=== PATIENT | female | born 1940 | race Caucasian/White ===

== ENCOUNTER 2016-10-07 06:40 | Day surgery (SDC) | payer MEDICARE, OTHER ==
[2016-10-07] MEDS ORDERED: Sodium Chloride 0.9% 10 ML Syringe FLUSH PRN (07:00)
[2016-10-07] MEDS ORDERED: Lactated Ringers 1,000 ML IV SCH (07:00)
[2016-10-07] MEDS ORDERED: Propofol 200 MG/20 ML SDV ONE (07:55)
[2016-10-07] MEDS ORDERED: fentaNYL 100 MCG/2 ML SDV ONE (07:55)
[2016-10-07 10:34] VITALS: BP 159/73
--- NOTE | 2016-10-07 11:42 | OR ---
PREOPERATIVE DIAGNOSIS: Positive family history of colon cancer-brother. POSTOPERATIVE DIAGNOSIS: Normal colonoscopic exam. PROCEDURE PROPOSED: Total flexible colonoscopy. PROCEDURE DONE: Total flexible colonoscopy. INDICATION: This is a 76-year-old female who comes in for recommended colonoscopy. She does have a family history of brother with colon cancer. Her last examination was approximately 11 years ago. She denies any symptomatology other than some chronic diarrhea that she has had since her gallbladder removal. TECHNIQUE: The patient was brought to the endoscopy suite, placed in left lateral decubitus position. She was sedated with propofol per [employer]. The flexible video colonoscope was then passed transanally and under visualization was advanced to the cecum. Examination revealed a normal ascending, transverse, descending, sigmoid, and rectal colon. There was no evidence of any diverticulosis, polyps, colitis, or any other abnormalities. The scope was then withdrawn. The patient tolerated the procedure well. IMPRESSION: 1. Essentially normal colonoscopic exam. 2. Family history of colon cancer-brother. PLAN: At her age of 76, I feel that she actually needs no future examinations. SCM: 10/07/2016 08:33:18 MODL: 10/07/2016 11:34:25 /[id number]
== END 2016-10-07 09:30 ==
LOC: VM.SDS 06:40
PROVIDERS: ATTEND Surgery
DX: Z80.0 Family history of malignant neoplasm of digestive organs (principal); Z12.11 Encounter for screening for malignant neoplasm of colon; I10 Essential (primary) hypertension; E11.9 Type 2 diabetes mellitus without complications; E78.00 Pure hypercholesterolemia, unspecified; K21.9 Gastro-esophageal reflux disease without esophagitis; E66.9 Obesity, unspecified; Z68.30 Body mass index [BMI] 30.0-30.9, adult; Z79.82 Long term (current) use of aspirin; Z79.899 Other long term (current) drug therapy; Z79.84 Long term (current) use of oral hypoglycemic drugs; Z88.1 Allergy status to other antibiotic agents; Z88.8 Allergy status to other drugs, medicaments and biological substances; Z90.49 Acquired absence of other specified parts of digestive tract; Z98.51 Tubal ligation status; Z98.890 Other specified postprocedural states
CPT/HCPCS: 82962; G0105; J2704; J3010; J7120; 00810

== ENCOUNTER 2016-11-11 21:31 | Emergency (ER) | payer MEDICARE, OTHER ==
[2016-11-11] MEDS ORDERED: Acetaminophen/HYDROcodone 325-10 MG Tab PO ONE (22:13)
[2016-11-11 23:44] VITALS: BP 144/64
--- NOTE | 2016-11-12 09:42 | ER ---
Date of Service: 11/11/2016 SUBJECTIVE: Margie presents to emergency room with complaints of problems with vaginal discomfort. The patient states that she is concerned that her Pinto catheter is not draining. The patient underwent a partial hysterectomy this morning and was discharged from the hospital, same day surgery, at [place] in afternoon. She noticed that she was experiencing drainage problems from the catheter as there had not been any urine output in approximately 2 hours. She states that the staff at the hospital advised the family that they were to pull the Pinto catheter in the morning and also pull the large vaginal packing from her vagina at that time. The patient is experiencing some vaginal irritation since, but states that she has not taken her pain medication for approximately 7 hours. PAST MEDICAL HISTORY: 1. Hypertension. 2. Labyrinthitis. 3. GERD. 4. Cholecystectomy. 5. Obesity. 6. Type 2 diabetes mellitus. MEDICATIONS: 1. Metformin. 2. Spironolactone/hydrochlorothiazide. 3. Zantac. 4. [place]-3 fatty acid. 5. Imodium. 6. Cinnamon. 7. Apple cider vinegar. 8. Cholestyramine. 9. Vitamin D3. 10.Atenolol. 11.Aspirin. 12.Digestive enzymes. ALLERGIES: Doxycycline, sulfamethoxazole, tetanus and trimethoprim. REVIEW OF SYSTEMS: Denies any fever, chills, nausea, vomiting, chest pain or shortness of breath. Please see history of present illness. PHYSICAL EXAMINATION: General: This is a 76-year-old female patient, who is in no acute distress. Vital Signs: Blood pressure is 144/64, heart rate is 58, respiratory rate 16, O2 saturations 94%. Skin: Warm, pink, and dry. HEENT. Head is normocephalic, atraumatic. Mouth, oral mucosa is moist. Lungs: Clear to auscultation. Heart: Regular rate and rhythm. Abdomen: Soft, nontender to palpation. There is no mass noted. There is no hepatosplenomegaly noted. Genitourinary: Pinto catheter is in place. There is yellowish urine present in the catheter tubing. It does appear that she has adequate urine output on examination of the catheter. The bladder scan was performed and she was found to have less than 50 mL of urine in her bladder. She did have a large packing placed in her vagina with a knot at the end. They appeared to be causing some discomfort to her perianal area. Remainder of her physical examination was unremarkable. ASSESSMENT: Postoperative pain and catheter complication. PLAN: The patient will be discharged. She was given [place] 10/325 here for her discomfort and was informed that she should take this every 4-6 hours as needed for pain. The Pinto catheter was kept in place. It is possible that it was kinked due to the way that the patient was sitting. I did advise the patient and family that they could return to the ER to have the packing and the catheter removed tomorrow in the morning. Also, return if she develops any fever, chills or other worrisome signs or symptoms. All questions were answered. ROBEK: 11/12/2016 06:47:12 MODL: 11/12/2016 08:48:28 /[id number]
== END 2016-11-11 22:38 | disposition home or self-care (01) ==
LOC: VM.ED 21:31
DX: T83.098A Other mechanical complication of other urinary catheter, initial encounter (principal); I10 Essential (primary) hypertension; K21.9 Gastro-esophageal reflux disease without esophagitis; E66.9 Obesity, unspecified; E11.9 Type 2 diabetes mellitus without complications; Z79.84 Long term (current) use of oral hypoglycemic drugs; Z79.899 Other long term (current) drug therapy; Z90.49 Acquired absence of other specified parts of digestive tract; Z79.82 Long term (current) use of aspirin; Z90.710 Acquired absence of both cervix and uterus; Z88.2 Allergy status to sulfonamides; Z88.1 Allergy status to other antibiotic agents
CPT/HCPCS: 51798; 99283; A9270

== ENCOUNTER 2020-03-12 15:04 | Emergency (ER) | payer MEDICARE, BC ==
--- NOTE | 2020-03-12 15:57 | CT ---
[id number] CT/CT Head WO IV EXAM: CT Head WO IV CLINICAL DATA: TRAUMA COMPARISON: NO PREVIOUS SIMILAR EXAM IS AVAILABLE FOR COMPARISON. FINDINGS: Soft tissue swelling is seen over the right parietal region There is no mass or mass effect. There is no hemorrhage or hydrocephalus. There are no extra-axial fluid collections. There are no sites of abnormal attenuation. IMPRESSION: NO PLAIN CT EVIDENCE OF ACUTE INTRACRANIAL PROCESS. Misha Hernandes MD 03/12/20 1138 Thank you for allowing us to participate in the care of your patient.
--- NOTE | 2020-03-12 16:13 | EDM.PDOC ---
ED HPI GENERAL MEDICAL PROBLEM - General Chief Complaint: Syncope Stated Complaint: FELL Time Seen by Provider: 03/12/20 15:04 Source of Information: Reports: Patient History Limitations: Reports: No Limitations - History of Present Illness INITIAL COMMENTS - FREE TEXT/NARRATIVE: Pt. presents to ER with complaints of cough, chest congestion, fever, chills, and weakness. Pt. states that she has had a close exposure to covid 19. She states that her son was in [place] from [place] and states that he was found to be positive after he flew home. Pt. states that she has been feeling poorly for around 6 days, and thinks she actually may be feeling better. Pt. states that she had a syncopal episode yesterday while standing in her kitchen. She states that she struck the R side of her head during the fall. She is not sure how long she was unresponsive. Denies any blurred vision, vision loss or change. When clinic staff was made aware if this, they advised the patient come to the ER. Pt. denies any headache. Her only complaint is the above noted as well as some superficial scalp pain. Pt. states that she has been coughing and states that this may have contributed to her syncope. Denies any loss of taste or smell. No nausea, vomiting, or diarrhea. Onset Date: 03/11/20 Location: Reports: Head, Chest, Generalized Quality: Reports: Ache - Related Data Allergies Allergy/AdvReac Type Severity Reaction Status Date / Time doxycycline Allergy Nausea and Verified 11/11/16 23:45 Vomiting sulfamethoxazole Allergy Rash Verified 11/11/16 23:45 [From ] tetanus toxoid, adsorbed Allergy Other Verified 11/11/16 23:45 trimethoprim [From ] Allergy Rash Verified 11/11/16 23:45 Home Meds: Home Meds Breanna/Cell/Lipas/Malt/Prt/Lac/in [Digestive Enzymes Capsule] 1 cap PO DAILY 10/03/16 [History] Aspirin 1 tab PO DAILY 10/03/16 [History] Cholecalciferol (Vitamin D3) [Vitamin D3] 1 tab PO DAILY 10/03/16 [History] Cholestyramine [Cholestyramine Resin] 9 gm PO DAILY 10/03/16 [History] Cider Vinegar [Apple Cider Vinegar] 1 tab PO DAILY 10/03/16 [History] Cinnamon Bark [Cinnamon] 1 cap PO DAILY 10/03/16 [History] Loperamide [Imodium] 2 mg ASDIRECTED PRN 10/03/16 [History] Dwarf-3 Fatty Acids [Maxepa] 1,000 mg PO DAILY 10/03/16 [History] Ranitidine HCl [Zantac] 1 tab PO BEDTIME 10/03/16 [History] Spironolact/Hydrochlorothiazid [Spironolactone-HCTZ 25-25] 1 tab PO DAILY 10/03/16 [History] atenoloL [Tenormin] 1 tab PO DAILY 10/03/16 [History] metFORMIN [Glucophage] 1 tab PO BID 10/03/16 [History] Past Medical History HEENT History: Reports: None, Other (See Below) Other HEENT History: labyrinthitis Cardiovascular History: Reports: Hypertension Respiratory History: Reports: None Gastrointestinal History: Reports: GERD, Other (See Below) Other Gastrointestinal History: disrrhea due to malabsorption Genitourinary History: Reports: None Musculoskeletal History: Reports: None Neurological History: Reports: None Psychiatric History: Reports: None Endocrine/Metabolic History: Reports: Diabetes, Type II, Obesity/BMI 30+ Hematologic History: Reports: None Immunologic History: Reports: None Oncologic (Cancer) History: Reports: None - Past Surgical History Head Surgeries/Procedures: Reports: None HEENT Surgical History: Reports: Cataract Surgery Cardiovascular Surgical History: Reports: None GI Surgical History: Reports: Cholecystectomy, Colonoscopy Female Surgical History: Reports: Tubal Ligation Musculoskeletal Surgical History: Reports: None Oncologic Surgical History: Reports: None ED ROS GENERAL - Review of Systems Review Of Systems: See Below Constitutional: Reports: No Symptoms Respiratory: Reports: No Symptoms Cardiovascular: Reports: No Symptoms Endocrine: Reports: No Symptoms GI/Abdominal: Reports: No Symptoms : Reports: No Symptoms Musculoskeletal: Reports: No Symptoms Skin: Reports: No Symptoms Neurological: Reports: Headache, Syncope. Denies: Paresthesia, Pre-Existing Deficit, Tingling, Tremors, Trouble Speaking, Difficulty Walking, Weakness, Change in Speech, Gait Disturbance Psychiatric: Reports: No Symptoms Hematologic/Lymphatic: Denies: Easy Bleeding, Easy Bruising, Swollen Glands Immunologic: Reports: No Symptoms ED EXAM, GENERAL - Physical Exam Exam: See Below Exam Limited By: No Limitations General Appearance: Alert, WD/WN, No Apparent Distress Eye Exam: Bilateral Eye: EOMI, Normal Fundi, Normal Inspection, PERRL Ears: Normal External Exam, Hearing Grossly Normal Nose: Normal Inspection, Normal Mucosa, No Blood Throat/Mouth: Normal Inspection, Normal Lips, Normal Teeth, Normal Gums, Normal Oropharynx, Normal Voice, No Airway Compromise Head: Other (scalp contusion R parietal) Neck: Normal Inspection, Supple, Non-Tender, Full Range of Motion. No: Limited Range of Motion, Tender Lateral, Tender Midline Respiratory/Chest: No Respiratory Distress, Lungs Clear, Normal Breath Sounds, No Accessory Muscle Use, Chest Non-Tender Cardiovascular: Normal Peripheral Pulses, Regular Rate, Rhythm, No Edema, No JVD, No Murmur Peripheral Pulses: 4+: Radial (L) GI/Abdominal: Soft, Non-Tender, No Organomegaly, No Distention, No Mass (Female) Exam: Deferred Rectal (Female) Exam: Deferred Back Exam: Normal Inspection, Full Range of Motion Extremities: Normal Inspection, Normal Range of Motion, Non-Tender, No Pedal Edema, Normal Capillary Refill Neurological: Alert, Oriented, CN II-XII Intact, Normal Cognition, Normal Gait, Normal Reflexes, No Motor/Sensory Deficits Psychiatric: Normal Affect, Normal Mood Skin Exam: Warm, Dry, Intact, Normal Color, No Rash Lymphatic: No Adenopathy #1 Interpretation Rhythm: NSR Beaver: Normal P-Wave: Present QRS: Normal ST-T: Normal QT: Normal Course - Orders/Labs/Meds Orders: Active Orders 24 hr Category Date Time Status EKG Documentation Completion [RC] STAT Care 03/12/20 15:22 Active BLOOD SMEARS TO PATHOLOGIST [REF] Stat Lab 03/12/20 15:47 Received Labs: Laboratory Tests 03/12/20 03/12/20 03/12/20 Range/Units 15:21 15:47 15:47 WBC 11.8 H (4.0-10.0) x10^3/uL RBC 4.36 (4.00-5.50) x10^6/uL Hgb 12.3 (12.0-16.0) g/dL Hct 37.7 (33.0-47.0) % MCV 86.5 (78.0-93.0) fL MCH 28.2 (26.0-32.0) pg MCHC 32.6 (32.0-36.0) g/dL RDW Coeff of Ellis 13.6 (10.0-15.0) % Plt Count 74 L (130-400) x10^3/uL Add Manual Diff Yes Neutrophils % (Manual) 41 L (50-80) % Band Neutrophils % 1 (0-6) % Lymphocytes % (Manual) 13 L (25-50) % Monocytes % (Manual) 27 H (2-11) % Eosinophils % (Manual) 1 (0-4) % Metamyelocytes % 7 H (0) % Myelocytes % 4 H (0) % Promyelocytes % 1 H (0) % Blast Cells % 5 H (0) % Platelet Estimate Marked dec L Giant Platelets Occasional H PT 11.0 (9.5-12.3) SEC INR 1.0 L (2.0-3.5) Sodium (136-145) mmol/L Potassium (3.5-5.1) mmol/L Chloride (98-107) mmol/L Carbon Dioxide (21-32) mmol/L Anion Gap (10-20) mmol/L BUN (7-18) mg/dL Creatinine (0.55-1.02) mg/dL Est Cr Clr Drug Dosing Estimated GFR (MDRD) Glucose (74-106) mg/dL Calcium (8.5-10.1) mg/dL Corrected Calcium (8.5-10.1) mg/dL Magnesium (1.8-2.4) mg/dL Total Bilirubin (0.2-1.0) mg/dL AST (15-37) U/L ALT (14-59) U/L Alkaline Phosphatase (46-116) U/L Troponin I (<=0.056) ng/mL Total Protein (6.4-8.2) g/dL Albumin (3.4-5.0) g/dL Globulin Albumin/Globulin Ratio SARS CoV-2 RNA Rapid ANA Positive H (NEGATIVE) 03/12/20 Range/Units 15:47 WBC (4.0-10.0) x10^3/uL RBC (4.00-5.50) x10^6/uL Hgb (12.0-16.0) g/dL Hct (33.0-47.0) % MCV (78.0-93.0) fL MCH (26.0-32.0) pg MCHC (32.0-36.0) g/dL RDW Coeff of Ellis (10.0-15.0) % Plt Count (130-400) x10^3/uL Add Manual Diff Neutrophils % (Manual) (50-80) % Band Neutrophils % (0-6) % Lymphocytes % (Manual) (25-50) % Monocytes % (Manual) (2-11) % Eosinophils % (Manual) (0-4) % Metamyelocytes % (0) % Myelocytes % (0) % Promyelocytes % (0) % Blast Cells % (0) % Platelet Estimate Giant Platelets PT (9.5-12.3) SEC INR (2.0-3.5) Sodium 132 L (136-145) mmol/L Potassium 3.1 L (3.5-5.1) mmol/L Chloride 94 L (98-107) mmol/L Carbon Dioxide 30 (21-32) mmol/L Anion Gap 11.1 (10-20) mmol/L BUN 13 (7-18) mg/dL Creatinine 1.1 H (0.55-1.02) mg/dL Est Cr Clr Drug Dosing TNP Estimated GFR (MDRD) 48 Glucose 162 H (74-106) mg/dL Calcium 8.6 (8.5-10.1) mg/dL Corrected Calcium 9.48 (8.5-10.1) mg/dL Magnesium 1.6 L (1.8-2.4) mg/dL Total Bilirubin 0.8 (0.2-1.0) mg/dL AST 41 H (15-37) U/L ALT 33 (14-59) U/L Alkaline Phosphatase 91 (46-116) U/L Troponin I < 0.017 (<=0.056) ng/mL Total Protein 8.1 (6.4-8.2) g/dL Albumin 2.9 L (3.4-5.0) g/dL Globulin 5.2 Albumin/Globulin Ratio 0.56 SARS CoV-2 RNA Rapid ANA (NEGATIVE) - Radiology Interpretation Free Text/Narrative:: CT brain negative for acute pathology. Departure - Departure Time of Disposition: 17:27 Disposition: Home, Self-Care 01 Clinical Impression: Closed head injury, Thrombocytopenia - Discharge Information Instructions: Head Injury, Adult, COVID-19, COVID-19: How to Protect Yourself and Others - CDC, Blood Smear Test Referrals: Kayla Kruse PA-C [Primary Care Provider] - Forms: ED Department Discharge Additional Instructions: Home to rest.Quarentine as directed by the community health systems dept. Average time is around 2 weeks. They will be in contact with you within the next day or 2. Tylenol and ibuprofen as needed for fever/discomfort. I would take this on a schedule. Your CT scan of your head didn't show any acute injury. Follow up with your PCP regarding your abnormal blood tests once you are out of quarantine. Return to ER if you have any worsening shortness of breath, confusion, headache, or speech problems. - Problem List Review Problem List Initiated/Reviewed/Updated: Yes - My Orders Last 24 Hours: My Active Orders 03/12/20 15:22 EKG Documentation Completion [RC] STAT 03/12/20 15:47 BLOOD SMEARS TO PATHOLOGIST [REF] Stat - Assessment/Plan Last 24 Hours: My Active Orders 03/12/20 15:22 EKG Documentation Completion [RC] STAT 03/12/20 15:47 BLOOD SMEARS TO PATHOLOGIST [REF] Stat Plan: Home to rest.Quarentine as directed by the community health systems dept. Average time is around 2 weeks. They will be in contact with you within the next day or 2. Tylenol and ibuprofen as needed for fever/discomfort. I would take this on a schedule. Your CT scan of your head didn't show any acute injury. Follow up with your PCP regarding your abnormal blood tests once you are out of quarantine. Return to ER if you have any worsening shortness of breath, confusion, headache, or speech problems.
[2020-03-12 16:17] LABS: ANION GAP 11.1 mmol/L (10-20); CHLORIDE,CL 94 mmol/L (98-107); SODIUM,NA 132 mmol/L (136-145)
[2020-03-12 18:24] VITALS: BP 147/65; PULSE 62
== END 2020-03-12 17:09 | disposition home or self-care (01) ==
LOC: SUPCPDRO 15:04 → VM.ED 15:04
DX: S09.90XA Unspecified injury of head, initial encounter (principal); D69.6 Thrombocytopenia, unspecified; E11.9 Type 2 diabetes mellitus without complications; I10 Essential (primary) hypertension; E66.9 Obesity, unspecified; Z20.828 Contact with and (suspected) exposure to other viral communicable diseases; Z79.82 Long term (current) use of aspirin; Z79.899 Other long term (current) drug therapy; Z79.84 Long term (current) use of oral hypoglycemic drugs; Z88.2 Allergy status to sulfonamides; Z88.7 Allergy status to serum and vaccine; Z88.1 Allergy status to other antibiotic agents; Z68.32 Body mass index [BMI] 32.0-32.9, adult; W01.198A Fall on same level from slipping, tripping and stumbling with subsequent striking against other object, initial encounter; Y92.000 Kitchen of unspecified non-institutional (private) residence as the place of occurrence of the external cause
CPT/HCPCS: 36415; 70450; 80053; 83735; 84484; 85008; 85025; 85046; 85610; 93005; 93010; 99284; 99284-25; U0002

== ENCOUNTER 2020-03-15 14:13 | Emergency (ER) | payer MEDICARE, BC ==
[2020-03-15 14:27] VITALS: BP 128/73; PULSE 92
[2020-03-15 15:04] LABS: CHLORIDE,CL 94 mmol/L (98-107); SODIUM,NA 133 mmol/L (136-145)
[2020-03-15 15:06] LABS: ANION GAP 13.2 mmol/L (10-20)
--- NOTE | 2020-03-15 15:28 | EDM.PDOC ---
ED HPI GENERAL MEDICAL PROBLEM - General Chief Complaint: General Stated Complaint: COVID Time Seen by Provider: 03/15/20 14:25 Source of Information: Reports: Patient History Limitations: Reports: No Limitations - History of Present Illness INITIAL COMMENTS - FREE TEXT/NARRATIVE: Patient comes emergency department today from home with concerns of weakness. This patient was diagnosed with COVID-19 on Thursday. She has been home quarantine since that time. She had symptoms for about 4 to 5 days prior to her diagnosis of COVID-19. She has the same exact symptoms today that she had prior to her diagnosis. She has no cough shortness of breath. She denies any fever or chills. She just complains of weakness and lightheadedness when she stands up. She has not fallen. She has not injured her head. She has no fatigue malaise. No fever no chills. No exercise intolerance. She has no nausea no vomiting. No diarrhea. No abdominal pain. She has been eating some food. She drinks about 1 glass of water a day and urinates maybe once a day. Her sons were concerned that she is not back to 100% so she was rushed to the emergency department. - Related Data Allergies Allergy/AdvReac Type Severity Reaction Status Date / Time doxycycline Allergy Nausea and Verified 03/15/20 14:35 Vomiting sulfamethoxazole Allergy Rash Verified 03/15/20 14:35 [From ] tetanus toxoid, adsorbed Allergy Other Verified 03/15/20 14:35 trimethoprim [From ] Allergy Rash Verified 03/15/20 14:35 Home Meds: Home Meds Breanna/Cell/Lipas/Malt/Prt/Lac/in [Digestive Enzymes Capsule] 1 cap PO DAILY 10/03/16 [History] Aspirin 1 tab PO DAILY 10/03/16 [History] Cholecalciferol (Vitamin D3) [Vitamin D3] 1 tab PO DAILY 10/03/16 [History] Cholestyramine [Cholestyramine Resin] 9 gm PO DAILY 10/03/16 [History] Cider Vinegar [Apple Cider Vinegar] 1 tab PO DAILY 10/03/16 [History] Cinnamon Bark [Cinnamon] 1 cap PO DAILY 10/03/16 [History] Loperamide [Imodium] 2 mg ASDIRECTED PRN 10/03/16 [History] Shepherd-3 Fatty Acids [Maxepa] 1,000 mg PO DAILY 10/03/16 [History] Ranitidine HCl [Zantac] 1 tab PO BEDTIME 10/03/16 [History] Spironolact/Hydrochlorothiazid [Spironolactone-HCTZ 25-25] 1 tab PO DAILY 10/03/16 [History] atenoloL [Tenormin] 1 tab PO DAILY 10/03/16 [History] metFORMIN [Glucophage] 1 tab PO BID 10/03/16 [History] Past Medical History HEENT History: Reports: None, Other (See Below) Other HEENT History: labyrinthitis Cardiovascular History: Reports: Hypertension Respiratory History: Reports: None Gastrointestinal History: Reports: GERD, Other (See Below) Other Gastrointestinal History: disrrhea due to malabsorption Genitourinary History: Reports: None Musculoskeletal History: Reports: None Neurological History: Reports: None Psychiatric History: Reports: None Endocrine/Metabolic History: Reports: Diabetes, Type II, Obesity/BMI 30+ Hematologic History: Reports: None Immunologic History: Reports: None Oncologic (Cancer) History: Reports: None - Infectious Disease History Infectious Disease History: Reports: Other (See Below) Other Infectious Disease History: covid19 - Past Surgical History Head Surgeries/Procedures: Reports: None HEENT Surgical History: Reports: Cataract Surgery Cardiovascular Surgical History: Reports: None GI Surgical History: Reports: Cholecystectomy, Colonoscopy Female Surgical History: Reports: Tubal Ligation Musculoskeletal Surgical History: Reports: None Oncologic Surgical History: Reports: None Social & Family History - Tobacco Use Tobacco Use Status *Q: Unknown Ever Used Tobacco ED ROS GENERAL - Review of Systems Review Of Systems: Comprehensive ROS is negative, except as noted in HPI. ED EXAM, GENERAL - Physical Exam Exam: See Below Exam Limited By: No Limitations General Appearance: Alert, WD/WN, No Apparent Distress Eye Exam: Bilateral Eye: EOMI, PERRL Ears: Normal External Exam, Normal TMs Nose: Normal Inspection, Normal Mucosa Throat/Mouth: Normal Inspection, Normal Lips, Normal Oropharynx, Normal Voice Head: Atraumatic, Normocephalic Neck: Normal Inspection, Supple, Non-Tender Respiratory/Chest: No Respiratory Distress, Lungs Clear, Normal Breath Sounds, No Accessory Muscle Use, Chest Non-Tender Cardiovascular: Normal Peripheral Pulses, Regular Rate, Rhythm GI/Abdominal: Normal Bowel Sounds, Soft, Non-Tender (Female) Exam: Deferred Rectal (Female) Exam: Deferred Back Exam: Normal Inspection, Full Range of Motion Extremities: Normal Inspection, Normal Range of Motion, Non-Tender, No Pedal Edema, Normal Capillary Refill Neurological: Alert, Oriented, Normal Cognition, Normal Gait, No Motor/Sensory Deficits Psychiatric: Normal Affect, Normal Mood Skin Exam: Warm, Dry, Intact, Normal Color, No Rash Course - Vital Signs Last Recorded V/S: Last Vital Signs Temp 97.3 F 03/15/20 14:13 Pulse 92 03/15/20 14:13 Resp 16 03/15/20 14:13 BP 128/73 03/15/20 14:13 Pulse Ox 95 03/15/20 14:13 - Orders/Labs/Meds Labs: Laboratory Tests 03/15/20 03/15/20 Range/Units 14:38 14:38 WBC 9.9 (4.0-10.0) x10^3/uL RBC 4.27 (4.00-5.50) x10^6/uL Hgb 11.9 L (12.0-16.0) g/dL Hct 36.6 (33.0-47.0) % MCV 85.7 (78.0-93.0) fL MCH 27.9 (26.0-32.0) pg MCHC 32.5 (32.0-36.0) g/dL RDW Coeff of Ellis 13.2 (10.0-15.0) % Plt Count 131 (130-400) x10^3/uL Add Manual Diff Yes Neutrophils % (Manual) 48 L (50-80) % Lymphocytes % (Manual) 9 L (25-50) % Monocytes % (Manual) 36 H (2-11) % Eosinophils % (Manual) 1 (0-4) % Metamyelocytes % 2 H (0) % Myelocytes % 2 H (0) % Blast Cells % 2 H (0) % Nucleated RBCs 1 (0-5) /100WBC Platelet Estimate Decreased L Giant Platelets Rare H Target Cells Rare Tear Drop Cells Occasional Sodium 133 L (136-145) mmol/L Potassium 3.2 L (3.5-5.1) mmol/L Chloride 94 L (98-107) mmol/L Carbon Dioxide 29 (21-32) mmol/L Anion Gap 13.2 (10-20) mmol/L BUN 18 (7-18) mg/dL Creatinine 1.2 H (0.55-1.02) mg/dL Est Cr Clr Drug Dosing TNP Estimated GFR (MDRD) 43 Glucose 190 H (74-106) mg/dL Calcium 8.3 L (8.5-10.1) mg/dL Corrected Calcium 9.42 (8.5-10.1) mg/dL Total Bilirubin 1.0 (0.2-1.0) mg/dL AST 34 (15-37) U/L ALT 25 (14-59) U/L Alkaline Phosphatase 83 (46-116) U/L Total Protein 8.0 (6.4-8.2) g/dL Albumin 2.6 L (3.4-5.0) g/dL Globulin 5.4 Albumin/Globulin Ratio 0.48 - Re-Assessments/Exams Free Text/Narrative Re-Assessment/Exam: 03/15/20 17:14 This patient actually looks very well. She most likely is having some dehydration issues with her weakness when she stands up. Her laboratory evaluation today is actually better than when she was initially diagnosed with Covid. She was able to drink 2 glasses of water in the emergency department. I discussed with her the importance of making sure that she is staying well- hydrated. She needs to continue her quarantining at home. She is comfortable this plan and her questions are answered. Departure - Departure Time of Disposition: 15:16 Disposition: Home, Self-Care 01 Clinical Impression: COVID-19, Weakness, Dehydration - Discharge Information Instructions: COVID-19 Frequently Asked Questions, Weakness, [id number], Rehydration, Adult, Dehydration, Elderly, [id number], Prevent the Spread of COVID-19 if You Are Sick - [facility] Referrals: Kayla Kruse PA-C [Primary Care Provider] - Forms: ED Department Discharge Additional Instructions: YOU MUST MAKE A CONSCIOUS EFFORT TO INCREASE YOUR FLUIDS. To include water gatorade and or powerade or other electrolyte containing fluids. If you are not urinating every 2 hours you are not drinking enough fluids. Continue with your quarantine at home as guided by the state. Small frequent high calorie protein meals. Return to the ED if new or worsening symptoms. Follow up with PCP if any concerns. Sepsis Event Note (ED) - Evaluation Sepsis Screening Result: No Definite Risk - Focused Exam Vital Signs: Vital Signs Temp Pulse Resp BP Pulse Ox 03/15/20 14:13 97.3 F 92 16 128/73 95
== END 2020-03-15 15:54 | disposition home or self-care (01) ==
LOC: VM.ED 14:13
DX: U07.1 COVID-19 (principal); E86.0 Dehydration; I10 Essential (primary) hypertension; K21.9 Gastro-esophageal reflux disease without esophagitis; E11.9 Type 2 diabetes mellitus without complications; Z79.82 Long term (current) use of aspirin; Z79.899 Other long term (current) drug therapy; Z88.1 Allergy status to other antibiotic agents; Z88.2 Allergy status to sulfonamides; Z88.7 Allergy status to serum and vaccine
CPT/HCPCS: 36415; 80053; 85025; 99284